=== PATIENT | male | born 1955 | race Caucasian/White ===

== ENCOUNTER 2019-11-21 08:57 | Emergency (ER) | payer BC, SELFPAY ==
[2019-11-21 08:59] VITALS: BP 138/95; PULSE 165; RESP 22; TEMP 36.8; O2SAT 95; BMI 33.9
--- NOTE | 2019-11-21 09:05 | ECG_ITS ---
APPROVED REPORT Exam: Resting ECG HR:105 bpm ECG Measurements Heart Rate 105 AXES NJ 188 P 40 QRSd 88 QRS 24 QT 338 T 32 QTc 446 <Conclusion> Sinus tachycardia RSR' or QR pattern in V1 suggests right ventricular conduction delay Borderline ECG Electronically signed by : Edward Cali, 11/21/2019 17:06:14
--- NOTE | 2019-11-21 09:05 | PC.NURSE ---
WHILE TRIAGING PT EDUCATED PT TO VAGAL DOWN D/T HR BEING IN THE 160S, WHILE ASSESSING PT HIS HR BEGAN TO SLOW DOWN AND HE CONVERTED TO SINUS TACHYCARDIA
--- NOTE | 2019-11-21 09:16 | HMH.EDGENADL ---
ED Disposition Clinical Impression: Atrial fibrillation, new onset, Hyperglycemia Disposition: Home, Self-Care Condition on Discharge: Good Additional Instructions: Take aspirin 81 mg daily. Bisoprolol daily as prescribed. See Dr. Santana in his office tomorrow at 9 AM. See your primary care doctor for follow-up of blood sugar. Blood sugar level was 199 today, not fasting. Return to the emergency department if symptoms return and do not resolve. Prescriptions: bisoproloL fumarate [Bisoprolol 10mg Tablet] 10 mg PO DAILY #30 tab Prescription Printed Referrals: Abhay Dukes [Primary Care Provider] - Dc Santana MD [Staff Physician] - - Critical Care Critical Care Time: No Attestation: On 11/21/19, the high probability of a clinically significant, sudden or life threatening deterioration of the following system(s) required my full and direct attention, intervention and personal management. The time I documented below is in addition to time spent performing reported procedures but includes the following listed in this critical care notation. Medical Decision Making - Medical Records Medical records reviewed: Yes: I reviewed the patient's medical records. - William Inquiry Pt receiving controlled substance: No Vital Signs: 11/21/19 08:59 11/21/19 09:29 11/21/19 10:00 Temperature 98.2 F Temperature Source Oral Pulse Rate Pulse Rate [Right] 165 H 101 H 101 H Respiratory Rate 22 21 20 Blood Pressure Blood Pressure [Right Arm] 138/95 H 151/97 H 135/85 Blood Pressure Mean [Right Arm] 109 115 101 02 Sat by Pulse Oximetry 95 93 L 95 11/21/19 10:23 Temperature 98.2 F Temperature Source Pulse Rate 98 H Pulse Rate [Right] Respiratory Rate 17 Blood Pressure 162/82 H Blood Pressure [Right Arm] Blood Pressure Mean [Right Arm] 02 Sat by Pulse Oximetry - Lab Data Lab results reviewed: Yes: I reviewed the patient's lab results. Lab Results 11/21/19 09:13: WBC 4.2 L, RBC 4.80, Hgb 15.5, Hct 45.2, MCV 94.3 H, MCH 32.3 H, MCHC 34.2, RDW 13.9, Plt Count 226, MPV 7.6, Neut % (Auto) 50.5, Lymph % (Auto) 39.7, Nelson % (Auto) 5.3, Eos % (Auto) 3.8, Baso % (Auto) 0.6, Neut # (Auto) 2.1, Lymph # (Auto) 1.7, Nelson # (Auto) 0.2, Eos # (Auto) 0.2, Baso # (Auto) 0.0 11/21/19 09:13: Sodium 142, Potassium 4.1, Chloride 111 H, Carbon Dioxide 21 L, Anion Gap 14.1, BUN 20, Creatinine 0.80, Estimated Creat Clear 120, Estimated GFR 97, Est GFR ( Amer) 118, Glucose 199 H, Calcium 9.5, Total Bilirubin 0.5, AST 30, ALT 35, Alkaline Phosphatase 81, Troponin I < 0.01, Total Protein 7.7, Albumin 4.4, Globulin 3.3 H, Albumin/Globulin Ratio 1.3, TSH 1.64, Thyroxine (T4) 6.6 Result diagrams: 11/21/19 09:13 11/21/19 09:13 Orders (Tests/Meds): ED MEDICATIONS Discontinued Medications Generic Name Dose Route Start Last Admin Trade Name Joshq PRN Reason Stop Dose Admin Aspirin 81 mg 11/21/19 10:01 Aspirin 81mg Chewable Tablet PO 11/21/19 10:02 ONCE ONE Bisoprolol Fumarate 10 mg 11/21/19 10:01 11/21/19 10:27 Zebeta 5mg Tablet PO 11/21/19 10:02 10 mg ONCE ONE Administration ORDERS Category Date Time Status XR chest 2V Stat Exams 11/21/19 09:22 Taken ECG Request by /Liza Stat Y 11/21/19 09:22 Ordered ECG Request by /Liza Stat Y 11/21/19 09:23 Ordered - Radiology Data #1 Image(s): Chest Image Reviewed: Yes I reviewed the patient's radiology image Preliminary Findings: Normal/NAD - ECG Data Tracing #1 EKG interpreted by Brandt Fisher MD: Rhythm: Atrial fibrillation with rapid ventricular response Rate: 163 Burns: normal Ectopy: none Conduction: normal ST Segment Changes: Nonspecific T Wave Changes: Nonspecific Q Waves: none No evidence of acute ischemia or injury Tracing #2 EKG interpreted by Brandt Fisher MD: Rhythm: sinus tachycardia Rate: 105 Burns: normal Ectopy: none Conduction: Incomplete right bundle branch
--- NOTE | 2019-11-21 09:22 | XR_ITS ---
PROCEDURE: XR CHEST 2V Referring Doctor: VimalBrandt madsen Patient Age:64Y CLINICAL HISTORY: TACHYCARDIA COMPARISON: No exams were available for comparison FINDINGS: PA and lateral chest: The heart appears slightly enlarged. Simona and mediastinal structures satisfactory. Right lung clear unremarkable. Left base: Upper normal density anteriorly subtle density just above left hemidiaphragm left lung base a may reflect anterior fat pad although if respiratory symptoms a very minor wispy infiltrate developing at lingula as questioned on the lateral view... Correlation required clinically. Pulmonary vascularity is upper normal. Chest wall T-spine unremarkable. No pleural effusion but no pneumothorax IMPRESSION: Borderline/mild cardiomegaly. No definitive pneumonia. Subtle very minimal density anterior left base suspect related to the anterior fat pad. Doubt early infiltrate lingula Dictated by: Luis Fernando Alexander MD 11/21/2019 20:12 Luis Fernando Alexander MD in [place] 11/21/2019 20:12
[2019-11-21 09:28] LABS: Basophils % 0.6 % (0.1-2.0); Eosinophils # 0.2 K/mm3 (0.0-0.4); Eosinophils % 3.8 % (0.1-12.0); Hematocrit 45.2 % (42.0-52.0); Hemoglobin 15.5 g/dL (14.1-18.0); Lymphocytes # 1.7 K/mm3 (0.7-4.5); Lymphocytes % 39.7 % (10-50); Mean Corpuscular HGB Conc 34.2 g/dL (31.8-35.4); Mean Corpuscular Hemoglobin 32.3 pg (27.0-31.2); Mean Corpuscular Volume 94.3 fl (80-94); Mean Platelet Volume 7.6 fl (7.4-10.4); Monocytes # 0.2 K/mm3 (0.1-1.0); Monocytes % 5.3 % (1.7-9.3); Neutrophils # 2.1 K/mm3 (1.8-7.8); Neutrophils % 50.5 % (37.0-80.0); Platelet Count 226 K/mm3 (142-424); Red Cell Distribution Width 13.9 % (11.5-17.5); White Blood Count 4.2 K/mm3 (4.8-10.8)
[2019-11-21 09:29] VITALS: BP 151/97; PULSE 101; RESP 21; O2SAT 93
[2019-11-21 09:29] LABS: Chloride 111 mmol/L (98-107); Potassium 4.1 mmoL/L (3.5-5.1); Sodium 142 mmol/L (136-145)
[2019-11-21 09:31] LABS: Blood Urea Nitrogen 20 mg/dl (9-20); Creatinine Clearance Estimated 120 mL/min (50-200); Estimated Glomerular Filt Rate 97 ml/min (>60); GFR (African American) 118 ML/MIN (>60)
[2019-11-21 09:32] LABS: Alanine Aminotransferase 35 U/L (12-78); Albumin Level 4.4 g/dl (3.5-5.0); Albumin/Globulin Ratio 1.3 (1.1-1.8); Alkaline Phosphatase 81 U/L (38-126); Anion Gap 14.1 mEq/L (5-15); Aspartate Amino Transferase 30 U/L (17-59); Bilirubin,Total 0.5 mg/dl (0.2-1.3); Calcium 9.5 mg/dl (8.4-10.2); Carbon Dioxide 21 mmol/L (22.0-30.0); Globulin 3.3 g/dL (1.3-3.2); Glucose 199 mg/dl (74-100); Total Protein,Serum 7.7 g/dl (6.3-8.2)
[2019-11-21 09:47] LABS: Troponin I < 0.01 ng/ml (0.00-0.034)
[2019-11-21 09:50] LABS: T4 (Thyroxine) 6.6 ug/dl (5.53-11.0)
--- NOTE | 2019-11-21 09:56 | PC.NURSE ---
Dr. Santana paged
--- NOTE | 2019-11-21 09:57 | PC.NURSE ---
SPEAKING TO DR KING
--- NOTE | 2019-11-21 09:57 | PC.NURSE ---
speaking with Dr. Santana
[2019-11-21 10:00] VITALS: BP 135/85; PULSE 101; RESP 20; O2SAT 95
[2019-11-21 10:03] LABS: Thyroid Stimulating Hormone 1.64 uIU/mL (0.465-4.68)
[2019-11-21 10:23] VITALS: BP 162/82; PULSE 98; RESP 17; TEMP 36.8; O2SAT 100
== END 2019-11-21 10:32 | disposition home or self-care (01) ==
PROVIDERS: Emergency Provider Emergency Medicine; PCP Family Medicine
DX: I48.0 Paroxysmal atrial fibrillation (principal); I10 Essential (primary) hypertension; E78.5 Hyperlipidemia, unspecified; Z79.899 Other long term (current) drug therapy; R73.9 Hyperglycemia, unspecified
CPT/HCPCS: 71046; 80053; 84436; 84443; 84484; 85025; 93005; 99284

== ENCOUNTER → 2019-12-07 06:36 | Outpatient (CLI) | payer BC, SELFPAY ==
--- NOTE | 2019-12-07 06:37 | CA_ITS ---
APPROVED REPORT Exam: Pharmacologic Technologist: Kisha Ventura, Ht: 6 ft 0 in Wt: 260 lbs BSA: 2.38 m2 HR: 45 bpm BP: 161/77 mmHg Indications: Chest pain, Sob, Afib Medical History Medications: Lisinopril,,,,, Rovastatin,,,,, BisOPROL,,,,, Asprin,,,,, Stress Test Details Test: LEXISCAN HR Resting HR: 54 bpm Max Heart Rate (APMHR): 156 bpm Max HR Achieved: 77 bpm Target HR (85% APMHR): 132 bpm % of APMHR: 49 Recovery HR: 65 bpm BP Resting BP: 173/80 mmHg Max BP: 173/80 mmHg Recovery BP: 158.0/81.0 mmHg ECG Clinical Exercise duration: 04:00 min Highest Stage Achieved: Exercise capacity: 1.0 METs Stress ECG Conclusion Resting EKG: Marked Sinus Clive, otherwise normal Switched from exercise due to blunted HR response on Beta Elly. Symptoms: SOA, maiaise, ASHTON, mild stomach discomfort Arrhythmias/Ectopy: None ST-T Changes: NST wave changes Conclusion: Unremarkable Lexiscan stress, Myoview images reported separately Test Summary RECOVERY 03:42 . . 65 . 158/ 81 . . REST 03:25 . . 54 . 173/ 80 . . Stage 1 . . . . . . . Myoview Injected Stage 1 01:00 . . 77 . . . . Stage 2 01:00 . . 68 . . . . Stage 3 01:00 . . 67 . 159/ 69 . . Stage 4 01:00 . . 65 . 143/ 72 . Stop exercise at 04:00 RECOVERY 01:00 . . 68 . 141/ 82 . . RECOVERY 02:00 . . 64 . 157/ 79 . . RECOVERY 03:00 . . 65 . 157/ 79 . . RECOVERY 03:42 . . 65 . 158/ 81 . . Electronically signed by : Adria Staton, 12/07/2019 18:43:13
--- NOTE | 2019-12-07 06:37 | CA_ITS ---
APPROVED REPORT EXAM: Comprehensive 2D, Doppler, and color-flow Echocardiogram Drapery Rod Assembler: Yara Anderson RDCS Ht: 6 ft 0 in Wt: 277lbs BSA: 2.45 BP: 122/70 mmHg Indications: CP, SOB, AF, HTN, HLD 2D Dimensions LVOT 2.49 cm (M/F) 1.5-2.5 M-Mode Dimensions RVDd 3.30 cm (0.9-2.6) LVDd 6.56 cm (3.5-5.7) LVDs 4.17 cm (3.5-5.7) IVSd 0.87 cm (0.6-1.1) PWd 0.87 cm (0.6-1.1) EF (Teich) 64.90% FS 36.40% EDV (Teich) 220.50 mL ESV (Teich) 77.30 mL LV Diastology E/A Ratio 1.02 Mitral Valve MV A Velocity 76.00 (40-130 cm/s) Left Ventricle Left atrium is mildly enlarged, left ventricle is normal size, mild concentric left ventricular hypertrophy, visually estimated ejection fraction 55% with no regional wall motion abnormality, grade 1 diastolic dysfunction seen without tissue Doppler evidence of raise left atrial pressure. Right Ventricle Right atrium and right ventricle are mildly enlarged with normal contractility. Aortic Valve Aortic valve is minimally thickened and fibrosed, there is no aortic stenosis or aortic insufficiency. Mitral Valve Mitral valve is grossly normal, there is mild mitral regurgitation. Tricuspid Valve Tricuspid valve is grossly normal, there is mild tricuspid regurgitation, tricuspid regurgitation jet velocity is inadequate for calculation of the right ventricular systolic pressure. Pulmonic Valve Pulmonic valve is poorly visualized. Great Vessels Aortic root is normal size. Pericardium No significant pericardial effusion noted. Conclusion 1. Mildly enlarged left atrium, normal left ventricular size, mild concentric left ventricular hypertrophy, visually estimated ejection fraction 55% with no regional wall motion abnormality, grade 1 diastolic dysfunction seen without tissue Doppler evidence of raise left atrial pressure. 2. Mildly enlarged right ventricle with normal contractility. 3. Mild mitral and tricuspid regurgitation. 4. No significant pericardial effusion noted. Electronically signed by : Adria Staton, 12/07/2019 18:22:06
--- NOTE | 2019-12-07 06:37 | NM_ITS ---
APPROVED REPORT Exam: Nuclear Stress Test Indication: SOB, Palpitations, HTN, High cholesterol, Family history Patient Location: Outpatient Stress Tech: Yuliet Rosales PA Tech:Deirdre Shook, ARRT, RT (R)(N) Ht: 6 ft 0 in Wt: 260 lbs HR: 45 bpm BP: 161/77 mmHg BSA: 2.38 m2 History: SOB, Palpitations, HTN, High cholesterol, Family history Procedure: Patient received a 0.4 mg of intravenous Lexiscan, resting heart rate 45 bpm, resting blood pressure 161/77 mmHg, with Lexiscan maximum heart rate achived was 68 bpm which is Less than 85 % of the maximum predicted heart rate and blood pressure was 159/60 mmHg. With Lexiscan, patient denied any complaint of chest pain. Electrocardiogram Resting electrocardiogram shows sinus rhythm, with Lexiscan there is less than 1.[address] segment depression noted from the baseline EKG. The EKG portion of the Lexiscan Myoview is nondiagnostic. Cardiac Stress and Resting SPECT Images: Cardiac Stress and Resting SPECT images were obtained using technetium 99m Myoview 31.5 mCi stress and 10.81 mCi at rest. Gated SPECT for analysis of segmental wall motion and calculation of the ejection fraction also done. Cardiac stress and resting SPECT images show decreased tracer activity in the posterolateral wall which partially improves on the resting images suggestive of mixed ischemia and scar, computer derived ejection fraction is 58% with mild posterolateral wall hypokinesis, right ventricle is normal size and contractility. Conclusion: 1. The EKG portion of the Lexiscan Myoview is nondiagnostic. 2. Scintigraphic evidence of mixed ischemia and scar involving the posterolateral wall, computer derived ejection fraction 58% with segmental wall motion abnormality described above, right ventricle is normal size and contractility. 3. Abnormal Lexiscan Myoview study. Electronically signed by : Adria Staton, 12/07/2019 18:46:42
--- NOTE | 2019-12-07 09:02 | HMH.ITSHM ---
Current Home Medications as stated by this patient Blaine Barth or apprenticeship representative. []LISINOPRIL ROSUVASTATIN BISOPROLOL
== END ==
PROVIDERS: PCP Family Medicine; Visit Provider Urology
DX: R06.00 Dyspnea, unspecified (principal); I48.91 Unspecified atrial fibrillation; R00.1 Bradycardia, unspecified; Z82.49 Family history of ischemic heart disease and other diseases of the circulatory system
CPT/HCPCS: 78452; 93017; 93306; A9502; J2785

== ENCOUNTER 2019-12-24 09:36 | Day surgery (SDC) | payer BC, SELFPAY ==
[2019-12-24] VITALS (11 sets, daily range): BP systolic 130–156; BP diastolic 55–89; PULSE 38–54; RESP 16; TEMP 36.4; O2SAT 94–98; BMI 37.4
--- NOTE | 2019-12-24 10:00 | IR_ITS ---
APPROVED REPORT Patient Location: Outpatient Retail Special Event Associate: RUPALI Sanderson RT (R) PROCEDURES Left heart catheterization Left ventriculogram Selective coronary angiogram Drug-eluting stent deployment to the mid dominant circumflex artery Drug-eluting stent deployment to the proximal LAD INDICATION Coronary artery disease, High risk abnormal Myoview in the posterior lateral wall accompanied by regional wall motion abnormality, Angina pectoris Informed consent was obtained prior to the procedure. COMPLICATIONS None Estimated Blood Loss: less than 10 ml TECHNIQUE One percent lidocaine used to anesthetize the right anterior aspect of the wrist. The right radial artery was accessed via the Seldinger technique. A 6 Yoruba sheath was placed in the right radial artery. 2.5 mg of verapamil, 800 mcg of nitroglycerin, 1mg Lidocaine and 5000 U Heparin were given through the arterial sheath. A Karthik catheter was used to perform left heart catheterization, left ventriculogram and selective coronary angiogram. At the end the diagnostic angiogram therapeutic heparin was administered giving a therapeutic ACT. A Choice PT extra-support wire was placed into the circumflex artery where a 3.5 x 12 mm resolute candice stent was deployed at 16 stephen reducing the hemodynamically severe stenosis to 0%. MICHAEL-3 flow was present before and after the procedure. After achieving excellent angiographic results this wire was placed into the LAD where a 3 mm x 18 mm resolute candice stent was deployed at 18 stephen reducing the severe stenosis to 0%. MICHAEL-3 flow was present before and after the procedure down both blood vessels. At the end of the procedure the apparatus was removed the sheath was removed good hemostasis was achieved using TR banding patient was transferred to the postop putting her in stable condition ANGIOGRAPHIC RESULTS The left main artery Normal The left anterior descending artery Has a proximal concentric 70% stenosis. The circumflex artery Is a large dominant vessel and gives rise to a ramus intermedius which is normal. The proximal circumflex artery has 10 to 20% stenoses while the mid segment has a concentric 50% stenosis The right coronary artery Nondominant very small with a proximal 90% stenosis The YBARRA ventriculogram reveals Preserved at 55% The left ventricular end-diastolic pressure 15 mmHg IMPRESSION Hemodynamically severe disease in the mid dominant circumflex artery accompanied by 50% stenosis with successful stenting reducing this lesion to 0% Angiographically severe stenosis in the proximal LAD reducing the stenosis to 0% with one drug-eluting stent Preserved ejection fraction Mildly elevated LVEDP Severely diseased vestigial right coronary artery too small for intervention and not clinically appropriate for intervention PLAN 1. Dual antiplatelet therapy with Brilinta and aspirin 2. LDL less than 55 3. Cardiac rehabilitation 4. Avoidance of tobacco products 5. Aggressive risk factor modification Electronically signed by : Dc Santana, 12/24/2019 11:42:25
[2019-12-24 10:29] LABS: Basophils % 0.8 % (0.1-2.0); Eosinophils # 0.2 K/mm3 (0.0-0.4); Eosinophils % 4.2 % (0.1-12.0); Hematocrit 42.1 % (42.0-52.0); Hemoglobin 14.8 g/dL (14.1-18.0); Lymphocytes # 1.8 K/mm3 (0.7-4.5); Mean Corpuscular HGB Conc 35.1 g/dL (31.8-35.4); Mean Corpuscular Hemoglobin 32.6 pg (27.0-31.2); Mean Corpuscular Volume 92.7 fl (80-94); Monocytes # 0.3 K/mm3 (0.1-1.0); Monocytes % 6.1 % (1.7-9.3); Neutrophils # 2.4 K/mm3 (1.8-7.8); Neutrophils % 50.9 % (37.0-80.0); Platelet Count 222 K/mm3 (142-424); Red Blood Count 4.54 M/mm3 (4.60-6.20); Red Cell Distribution Width 13.5 % (11.5-17.5); White Blood Count 4.6 K/mm3 (4.8-10.8)
[2019-12-24 10:30] LABS: Chloride 108 mmol/L (98-107); Potassium 4.5 mmoL/L (3.5-5.1); Sodium 142 mmol/L (136-145)
[2019-12-24 10:33] LABS: Anion Gap 16.5 mEq/L (5-15); Blood Urea Nitrogen 17 mg/dl (9-20); Calcium 9.2 mg/dl (8.4-10.2); Carbon Dioxide 22 mmol/L (22.0-30.0); Creatinine Clearance Estimated 132 mL/min (50-200); Estimated Glomerular Filt Rate 75 ml/min (>60); GFR (African American) 91 ML/MIN (>60); Glucose 113 mg/dl (74-100)
[2019-12-24 10:54] LABS: Coronavirus 19 IgG Antibody Negative (Negative); Coronavirus 19 IgM Antibody Negative (Negative)
--- NOTE | 2019-12-24 14:19 | HMH.PHACLD ---
Blaine Barth has received discharge medication counseling on the following medications: PATIENT IS CURRENTLY TAKING ASPIRIN 325 MG DAILY, BISOPROLOL 5 MG DAILY, LISINOPRIL 10 MG DAILY, AND ROSUVASTATIN 10 MG DAILY. MD ADDING BRILINTA 90 MG BID. ASPIRIN IS BEING CHANGED TO 81 MG DAILY.
== END 2019-12-24 14:58 | disposition home or self-care (01) ==
LOC: CATHLAB 09:39
PROVIDERS: PCP Family Medicine; Visit Provider Internal Medicine
DX: I48.0 Paroxysmal atrial fibrillation (principal); E78.5 Hyperlipidemia, unspecified; I10 Essential (primary) hypertension; R00.1 Bradycardia, unspecified; Z82.49 Family history of ischemic heart disease and other diseases of the circulatory system; I25.118 Atherosclerotic heart disease of native coronary artery with other forms of angina pectoris
CPT/HCPCS: 80048; 85025; 86328; 92928; 93458; 99152; 99153; C1725; C1760; C1769; C1876; C9600; J1644; Q9967

== ENCOUNTER 2020-02-19 17:03 | Emergency (ER) | payer BC, SELFPAY ==
[2020-02-19 17:19] VITALS: BP 170/97; PULSE 68; RESP 17; TEMP 36.9; O2SAT 95; BMI 37.3
--- NOTE | 2020-02-19 17:21 | CT_ITS ---
Procedure: CT ABDOMEN PELVIS WO CON Referring Doctor: Chang Guthrie Patient Age:65Y CLINICAL INDICATION: flank pain, r/o kidney stone COMPARISON: No exams were available for comparison TECHNIQUE: Axial images obtained with sagittal and coronal reformats. All CT scans at the facility use one or more dose reduction, viz: automated exposure control, ma/kV adjustment per patient size (including targeted exams where dose is matched to indication, i.e. head), or iterative reconstruction technique. FINDINGS: Lower thorax: Subtle ground-glass opacities at the periphery of the lung deras bilaterally most likely reflecting some minor chronic changes and mild atelectasis. Doubt active disease but if respiratory symptoms this may require further investigation but this features most evident the posterior right lung base no pleural effusion but Heart. Mild cardiomegaly ABDOMEN: Liver: No masses or biliary dilatation. Gallbladder: Nondistended. No radio opaque stones. Common duct normal 2 the Pancreas: Unremarkable no masses or peripancreatic fluid collections. Spleen: unremarkable Adrenals: unremarkable === tract === Kidneys/ureters: Mild bilateral hydroureter ureteral nephrosis but. Left kidney: 5 mmx 2 mm non-obstructing calculus within the lower pole calyx left kidney. Mild motion artifact slightly distorts this finding Right kidney. Mild cortical thinning at lower pole may reflect old insult or infection PELVIS: Urinary bladder: Moderately distended. No stones or masses. Of normal wall thickness. Small prostate. . Prostate not enlarged measuring 3.2 cm transverse. There is some nonspecific mild asymmetry of the seminal vesicles with the right larger than left === GI tract ==== Large bowel. Moderate stool is seen throughout the right and transverse colon but minimal solid stool at left colon through the rectosigmoid. . Appendix not discretely visualized but no evidence of appendicitis. Terminal ileum. Contains some minimal stool-like material which may reflect reflux from ileocecal valve or mild a decreased peristalsis as could be seen with a mild ileus but remainder of the small bowel appears normal and unremarkable with no dilatation or other findings to raise concerns. Stomach bowel: Nondistended. No obvious mass or thickening. Peritoneum: No abnormal fluid collections. No obvious inflammatory changes. No free air. Lymph nodes: No enlarged lymph nodes apparent. Vasculature: Diffuse atherosclerotic calcification of abdominal aorta. No aneurysmal dilatation. No retroperitoneal hemorrhage evident. Bones: No acute fracture 7 mm lucent area with fairly dense surrounding sclerosis anterior aspect subcapital region right femoral neck but this most likely reflects a benign herniation pit or similar benign feature. There is a similar less pronounced smaller feature on the contralateral left femoral neck IMPRESSION: 1..Mild bilateral hydronephrosis with slight diffuse dilatation of both ureters down to the bladder... Trigone region and bladder unremarkable and no bladder calculi are evident. Urinary bladder only mildly distended. Prostate not enlarged findings warrant correlation with urinalysis 2. Incidental non-obstructing calculus at lower pole calyx left kidney 5 x 2 mm No ureteral calculi. No calculi right kidney 3.. Appendix not discretely visualized but I see no good evidence of appendicitis However if there should be progressive RLQ pain, follow-up with oral and IV contrast may be of benefit. 4. Very subtle ground-glass opacities in the periphery of the lung bases most likely reflecting mild chronic changes and atelectasis. Dicta
[2020-02-19 17:30] LABS: Chloride 105 mmol/L (98-107)
[2020-02-19 17:32] LABS: Alanine Aminotransferase 29 U/L (12-78); Albumin Level 4.7 g/dl (3.5-5.0); Albumin/Globulin Ratio 1.3 (1.1-1.8); Alkaline Phosphatase 71 U/L (38-126); Amylase 61 U/L (30-110); Anion Gap 10.7 mEq/L (5-15); Aspartate Amino Transferase 28 U/L (17-59); Basophils % 0.4 % (0.1-2.0); Bilirubin,Total 0.5 mg/dl (0.2-1.3); Blood Urea Nitrogen 24 mg/dl (9-20); Calcium 9.5 mg/dl (8.4-10.2); Carbon Dioxide 27 mmol/L (22.0-30.0); Creatinine Clearance Estimated 118 mL/min (50-200); Eosinophils % 0.7 % (0.1-12.0); Estimated Glomerular Filt Rate 67 ml/min (>60); GFR (African American) 81 ML/MIN (>60); Globulin 3.6 g/dL (1.3-3.2); Glucose 111 mg/dl (74-100); Hematocrit 47.1 % (42.0-52.0); Hemoglobin 15.9 g/dL (14.1-18.0); Lipase 70 U/L (23-300); Lymphocytes # 1.8 K/mm3 (0.7-4.5); Lymphocytes % 28.5 % (10-50); Mean Corpuscular HGB Conc 33.8 g/dL (31.8-35.4); Mean Corpuscular Hemoglobin 32.1 pg (27.0-31.2); Mean Platelet Volume 7.8 fl (7.4-10.4); Monocytes # 0.2 K/mm3 (0.1-1.0); Monocytes % 3.3 % (1.7-9.3); Neutrophils # 4.1 K/mm3 (1.8-7.8); Platelet Count 254 K/mm3 (142-424); Potassium 4.7 mmoL/L (3.5-5.1); Red Blood Count 4.96 M/mm3 (4.60-6.20); Red Cell Distribution Width 14.1 % (11.5-17.5); Sodium 138 mmol/L (136-145); Total Protein,Serum 8.3 g/dl (6.3-8.2); White Blood Count 6.1 K/mm3 (4.8-10.8)
--- NOTE | 2020-02-19 17:52 | HMH.EDABDPAI ---
ED Disposition Clinical Impression: Obstructive uropathy, UTI (urinary tract infection) with pyuria Disposition: Home, Self-Care Condition on Discharge: Good Instructions: DI for Acute Abdomen Prescriptions: Ciprofloxacin HCl [Ciprofloxacin 500mg Tab] 500 mg PO BID 7 Days #14 tab Transmission Status: Pending to [facility]/pharmacy #[id number] Referrals: PCP,No [Primary Care Provider] - - Critical Care Critical Care Time: No Attestation: On 02/19/20, the high probability of a clinically significant, sudden or life threatening deterioration of the following system(s) required my full and direct attention, intervention and personal management. The time I documented below is in addition to time spent performing reported procedures but includes the following listed in this critical care notation. Medical Decision Making - William Inquiry Pt receiving controlled substance: No Vital Signs: 02/19/20 17:19 Temperature 98.5 F Temperature Source Oral Pulse Rate [Right Radial] 68 Respiratory Rate 17 Blood Pressure [Right Arm] 170/97 H Blood Pressure Mean [Right Arm] 121 02 Sat by Pulse Oximetry 95 Oxygen Delivery Method Room Air - Lab Data Lab results reviewed: Yes: I reviewed the patient's lab results. Lab Results 02/19/20 17:20: WBC 6.1, RBC 4.96, Hgb 15.9, Hct 47.1, MCV 95.0 H, MCH 32.1 H, MCHC 33.8, RDW 14.1, Plt Count 254, MPV 7.8, Neut % (Auto) 67.0, Lymph % (Auto) 28.5, Tama % (Auto) 3.3, Eos % (Auto) 0.7, Baso % (Auto) 0.4, Neut # (Auto) 4.1, Lymph # (Auto) 1.8, Tama # (Auto) 0.2, Eos # (Auto) 0.0, Baso # (Auto) 0.0 02/19/20 17:20: Sodium 138, Potassium 4.7, Chloride 105, Carbon Dioxide 27, Anion Gap 10.7, BUN 24 H, Creatinine 1.10, Estimated Creat Clear 118, Estimated GFR 67, Est GFR ( Amer) 81, Glucose 111 H, Calcium 9.5, Total Bilirubin 0.5, AST 28, ALT 29, Alkaline Phosphatase 71, Total Protein 8.3 H, Albumin 4.7, Globulin 3.6 H, Albumin/Globulin Ratio 1.3, Amylase 61, Lipase 70 02/19/20 17:50: Urine Color Yellow, Urine Appearance Clear, Urine pH 7.0, Ur Specific Pooler 1.020, Urine Protein 3+, Urine Glucose (UA) 1+, Urine Ketones 1+, Urine Blood 3+, Urine Nitrate Positive, Urine Bilirubin Negative, Urine Urobilinogen 4.0, Ur Leukocyte Esterase 2+ A, Urine RBC Tntc, Urine WBC 10-20, Ur Squamous Epith Cells 5-10, Amorphous Sediment 2+, Urine Bacteria 2+ Result diagrams: 02/19/20 17:20 02/19/20 17:20 Orders (Tests/Meds): ED MEDICATIONS Generic Name Dose Route Start Last Admin Trade Name Freq PRN Reason Stop Dose Admin Sodium Chloride 1,000 mls @ 999 mls/hr 02/19/20 17:30 02/19/20 17:31 Sod Chlor 0.9% 1000ml Bag IV 02/19/20 18:30 999 mls/hr .Q1H1M KAREN Administration Discontinued Medications Generic Name Dose Route Start Last Admin Trade Name Freq PRN Reason Stop Dose Admin Ketorolac Tromethamine 30 mg 02/19/20 17:21 02/19/20 17:25 Ketorolac 30mg/Ml Vial IV 02/19/20 17:22 30 mg ONCE ONE Administration Ondansetron HCl 4 mg 02/19/20 17:21 02/19/20 17:25 Ondansetron 4mg/2ml Vial IV 02/19/20 17:22 4 mg ONCE ONE Administration ORDERS Category Date Time Status CT abdomen pelvis wo con Stat Cat Scan 02/19/20 17:21 Taken Urine Culture Stat Micro 02/19/20 17:50 Received - CT Data CT Scan: Abdomen, Pelvis Time Received: 18:[address] Reviewed: Yes: I have reviewed the patient's CT results, I have viewed the radiologist's interpretation Findings Narrative: bladder distension w/ bilat. hydronephrosis; no other acute process seen Abdominal Pain HPI - General Chief Complaint: Abdominal Pain Stated Complaint: possible kidney stones Time Seen by Provider: 02/19/20 17:50 Mode of Arrival: Ambulatory Source of Information: Patient Limitations: No Limitations Description of Symptoms (Recalled from ER Triage Doc. by RN): pt c/o bilateral flank pain and inability to void. pt states he has hx of kidney stones and feels like he has one. - History of Present Illn
[2020-02-19 18:15] LABS: Microscopic, Urine URINE MICROSCOPIC (MICROSCOPIC)
[2020-02-19 18:16] LABS: Appearance,Urine CLEAR (Clear); Blood, Urine 3+ (Negative); Color,Urine YELLOW (Yellow); Glucose,Urine (UA) 1+ (Negative); Ketones,Urine 1+ (Negative); Leukocyte Esterase,Urine 2+ (Negative); Nitrate,Urine POSITIVE (Negative); Protein,Urine 3+ (Negative)
[2020-02-19 18:18] LABS: Bilirubin,Urine Negative (Negative)
[2020-02-19 18:26] LABS: Amorphous Sediment,Urine 2+ /lpf; Bacteria,Urine 2+ /lpf; RBC,Urine TNTC #/hpf (0-3)
--- NOTE | 2020-02-19 18:49 | PC.NURSE ---
leg bag provided and extensive education provided to patient and on care of the baker cath. both verbalize understanding and deny questions or concerns.
[2020-02-19 19:14] VITALS: BP 185/99; PULSE 75; RESP 18; TEMP 36.9; O2SAT 98
== END 2020-02-19 19:26 | disposition home or self-care (01) ==
PROVIDERS: Emergency Provider Emergency Medicine
DX: N13.9 Obstructive and reflux uropathy, unspecified (principal); N30.00 Acute cystitis without hematuria; I10 Essential (primary) hypertension; I48.0 Paroxysmal atrial fibrillation; E78.5 Hyperlipidemia, unspecified; F17.210 Nicotine dependence, cigarettes, uncomplicated; I25.10 Atherosclerotic heart disease of native coronary artery without angina pectoris; Z87.442 Personal history of urinary calculi; Z79.899 Other long term (current) drug therapy
CPT/HCPCS: 74176; 80053; 81001; 82150; 83690; 85025; 87086; 96365; 96367; 96375; 99283; J2405

== ENCOUNTER 2020-02-20 10:23 | Observation (INO) | payer BC, SELFPAY ==
[2020-02-20 10:41] VITALS: BP 125/66; PULSE 59; RESP 17; TEMP 36.8; O2SAT 95; BMI 37.3
--- NOTE | 2020-02-20 10:49 | HMH.EDGENADL ---
ED Disposition Clinical Impression: Acute urinary retention, Cystitis, Gross hematuria Obstructed Olsen catheter Qualifiers: Encounter type: initial encounter Qualified Code(s): T83.091A - Other mechanical complication of indwelling urethral catheter, initial encounter Disposition: Admitted as Observation Condition on Discharge: Good - Critical Care Critical Care Time: No Attestation: On 02/20/20, the high probability of a clinically significant, sudden or life threatening deterioration of the following system(s) required my full and direct attention, intervention and personal management. The time I documented below is in addition to time spent performing reported procedures but includes the following listed in this critical care notation. Medical Decision Making - Medical Records Medical records reviewed: Yes: I reviewed the patient's medical records. MR Comment: Reviewed emergency department visits for urinary retention and catheter obstruction. Reviewed CT scan and urine results, lab results. - William Inquiry Pt receiving controlled substance: No Vital Signs: 02/20/20 10:41 02/20/20 14:41 Temperature 98.3 F 98.3 F Temperature Source Oral Pulse Rate 56 L Pulse Rate [Right Radial] 59 L Respiratory Rate 17 17 Blood Pressure 146/71 H Blood Pressure [Right Arm] 125/66 Blood Pressure Mean [Right Arm] 85 02 Sat by Pulse Oximetry 95 Oxygen Delivery Method Room Air Room Air - Lab Data Lab results reviewed: Yes: I reviewed the patient's lab results. Lab Results 02/20/20 11:05: Sodium 140, Potassium 4.4, Chloride 110 H, Carbon Dioxide 26, Anion Gap 8.4, BUN 26 H, Creatinine 0.90, Estimated Creat Clear 130, Estimated GFR 85, Est GFR ( Amer) 102 D, Glucose 141 H D, Calcium 8.7 02/20/20 11:05: WBC 3.9 L D, RBC 4.51 L, Hgb 14.1 D, Hct 41.9 L, MCV 92.9, MCH 31.3 H, MCHC 33.7, RDW 14.2, Plt Count 212, MPV 7.7, Neut % (Auto) 53.5, Lymph % (Auto) 34.0, [place] % (Auto) 7.1, Eos % (Auto) 4.6, Baso % (Auto) 0.7, Neut # (Auto) 2.1, Lymph # (Auto) 1.3, [place] # (Auto) 0.3, Eos # (Auto) 0.2, Baso # (Auto) 0.0 02/20/20 11:05: SARS-CoV-2 IgG Ab (Rapid) Negative, SARS-CoV-2 IgM Ab (Rapid) Negative Result diagrams: 02/20/20 11:05 02/20/20 11:05 Orders (Tests/Meds): ED MEDICATIONS Generic Name Dose Route Start Last Admin Trade Name Freq PRN Reason Stop Dose Admin Acetaminophen 650 mg 02/20/20 14:22 02/20/20 18:10 Acetaminophen 325mg Tab PO 03/21/20 14:21 650 mg Q4HP PRN Administration As Needed for Fever or Pain Aspirin 81 mg 02/21/20 09:00 Aspirin Ec 81mg Tablet PO 03/22/20 08:59 DAILY KAREN Carvedilol 12.5 mg 02/20/20 21:00 Carvedilol 12.5mg Tablet PO 03/21/20 20:59 BID KAREN Clopidogrel Bisulfate 75 mg 02/21/20 09:00 Clopidogrel 75mg Tab PO 03/22/20 08:59 DAILY KAREN Sodium Chloride 1,000 mls @ 50 mls/hr 02/20/20 14:22 02/20/20 15:07 Sod Chlor 0.9% 1000ml Bag IV 03/21/20 14:21 50 mls/hr .Q20H KAREN Administration Levofloxacin/Dextrose 750 mg in 150 mls @ 100 mls/hr 02/20/20 15:00 02/20/20 15:09 Levofloxacin 750mg/150ml Premix IV 03/05/20 14:59 100 mls/hr Q24H KAREN Administration Irbesartan 37.5 mg 02/21/20 09:00 Irbesartan 75mg Tablet PO 03/22/20 08:59 DAILY KAREN Ondansetron HCl 4 mg 02/20/20 14:22 Ondansetron 4mg/2ml Vial IV 03/21/20 14:21 Q8HP PRN Nausea Pantoprazole Sodium 40 mg 02/21/20 09:00 Pantoprazole 40mg Tablet PO 03/22/20 08:59 DAILY KAREN Pravastatin Sodium 40 mg 02/20/20 21:00 Pravastatin 40mg Tab PO 03/21/20 20:59 HS KAREN Sodium Chloride 10 ml 02/20/20 14:22 Sodium Chloride 0.9% 10ml Flush Syringe IV 03/21/20 14:21 NEEDED PRN Maintain IV Site ORDERS Category Date Time Status Consult to Urology [CONS] Routine Cons 02/20/20 14:22 Active - Physician Consults Physician Consulted: Dr. Cali Time: 13:39 Reason -: Admission Comment/Response:
[2020-02-20 11:21] LABS: Basophils % 0.7 % (0.1-2.0); Chloride 110 mmol/L (98-107); Eosinophils # 0.2 K/mm3 (0.0-0.4); Eosinophils % 4.6 % (0.1-12.0); Hematocrit 41.9 % (42.0-52.0); Lymphocytes # 1.3 K/mm3 (0.7-4.5); Mean Corpuscular HGB Conc 33.7 g/dL (31.8-35.4); Mean Corpuscular Hemoglobin 31.3 pg (27.0-31.2); Mean Corpuscular Volume 92.9 fl (80-94); Mean Platelet Volume 7.7 fl (7.4-10.4); Monocytes # 0.3 K/mm3 (0.1-1.0); Monocytes % 7.1 % (1.7-9.3); Neutrophils # 2.1 K/mm3 (1.8-7.8); Neutrophils % 53.5 % (37.0-80.0); Platelet Count 212 K/mm3 (142-424); Red Blood Count 4.51 M/mm3 (4.60-6.20); Red Cell Distribution Width 14.2 % (11.5-17.5); Sodium 140 mmol/L (136-145); White Blood Count 3.9 K/mm3 (4.8-10.8)
[2020-02-20 11:22] LABS: Hemoglobin 14.1 g/dL (14.1-18.0); Potassium 4.4 mmoL/L (3.5-5.1)
[2020-02-20 11:25] LABS: Anion Gap 8.4 mEq/L (5-15); Blood Urea Nitrogen 26 mg/dl (9-20); Calcium 8.7 mg/dl (8.4-10.2); Carbon Dioxide 26 mmol/L (22.0-30.0); Creatinine Clearance Estimated 130 mL/min (50-200); Estimated Glomerular Filt Rate 85 ml/min (>60); GFR (African American) 102 ML/MIN (>60); Glucose 141 mg/dl (74-100)
--- NOTE | 2020-02-20 12:05 | PC.NURSE ---
baker cath removed and large blood clot lodged in the end of the catheter. [address] catheter placed via sterile technique and to bsd bag system. pt continuous bladder irrigation started. pt tolerated well with minimal discomfort.
--- NOTE | 2020-02-20 13:20 | PC.NURSE ---
3000 blood tinged urine emptied from baker cath bag. 2nd bag of bladder irrigation initiated. pt tolerating well.
--- NOTE | 2020-02-20 13:37 | PC.NURSE ---
Dr Fisher speaking with Dr Cali
[2020-02-20 14:15] LABS: Coronavirus 19 IgG Antibody Negative (Negative); Coronavirus 19 IgM Antibody Negative (Negative)
--- NOTE | 2020-02-20 14:24 | HMH.PHAVTE ---
[facility] Pharmacy VTE Monitoring - Patient Demographics Admission date: 02/20/20 Report Date: 02/20/20 Time: 14:24 Allergies/Adverse Reactions: Patient Allergies No Known Allergies Allergy (Verified 02/20/20 10:46) Height: 1.83 m Weight: 124.738 kg Patient Problems: Current Active Problems Acute urinary retention (Acute) Cystitis (Acute) Gross hematuria (Acute) Obstructed Olsen catheter (Acute) - VTE Risk Labs: VTE Related Lab Results Hgb 14.1 g/dL (14.1-18.0) D 02/20/20 11:05 Hct 41.9 % (42.0-52.0) L 02/20/20 11:05 Plt Count 212 K/mm3 (142-424) 02/20/20 11:05 BUN 26 mg/dl (9-20) H 02/20/20 11:05 Creatinine 0.90 mg/dl (0.66-1.25) 02/20/20 11:05 Estimated Creat Clear 130 mL/min (50-200) 02/20/20 11:05 - Prophylaxis VTE Prophylaxis Ordered?: Yes Types of VTE Prophylaxis: TEDS Knee High Location of Applied Device: Bilateral Lower Extremeties
--- NOTE | 2020-02-20 14:40 | PC.NURSE ---
2 bag of bladder irrigation complete. 2000 mL of urine emptied from bsd bag system. report to armida, kate rn on 2nd floor and patient transported to floor by wheelchair at this time.
--- NOTE | 2020-02-20 14:40 | HMH.PHAINT ---
MEDICATION RECONCILIATION COMPLETED ON PATIENT USING EXTERNAL FILL HISTORY FROM PHARMACY. -SEBASTIÁN DORANTES, ABRILD
[2020-02-20 14:41] VITALS: BP 146/71; PULSE 56; RESP 17; TEMP 36.8; O2SAT 95
[2020-02-20 15:06] VITALS: BP 167/74; PULSE 52; RESP 17; TEMP 36.7; O2SAT 99; BMI 37.8
--- NOTE | 2020-02-20 16:59 | HMH.HP ---
*Admission Date: 02/20/20 *Chief complaint: Urinary obstruction, hematuria *History of present illness: 65-year-old white male with pertinent history of prostate cancer diagnosed a couple of years ago, status post radical prostatectomy with increased PSA several months later and then 36 cycles of radiation therapy followed by hormonal injections x2. Since that time he has been in remission with negative PSA testing. 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 3 days ago was at a sale in [facility] and had the urge to void, was only able to produce a couple of drops of blood. Came back to home that night and again was unable to void except for blood. Came to the emergency department where catheter was placed with good return of bloody urine and he was discharged home but that night had increasing pain and distention of his bladder with inability to void with the catheter. Did have leakage of urine around the catheter. Came back to the emergency department where catheter was replaced, clot was in the catheter and he was sent back home when this happened again. Return to the ER this morning. Significant pain and discomfort. Because of the repetitive nature of this occlusion and his need for ongoing bladder irrigation and failed home catheter trial he is admitted to hospital for continuous bladder irrigation, antibiotic coverage given his instrumentation of his bladder and urology consultation. [facility] History Medical History: Reports:: Atrial Fibrillation, Cancer, Coronary Artery Disease (Stent placement several months ago, has had a cough from medications ), Hyperlipidemia, Hypertension Denies:: Diabetes Mellitus Type 1, Diabetes Mellitus Type 2 *Have you ever received a pneumonia vaccine?: No *Have you received a flu vaccine this season?: Yes Other Surgeries: Yes: No Previous Surgery, Cardiac Catheterization, Coronary Stent - *Social History Smoking Status: Current some day smoker Tobacco Type: cigars # Packs/Day (cigarettes): 0 Alcohol Intake: never Substance Use Type: denies use *Occupational Status:: employed Household Members: spouse *Travel in the last 8 weeks: None Family Hx:: Coronary Artery Disease Review of Systems - Review of Systems Review of systems:: pertinent systems reviewed and negative unless documented below - Constitutional Denies anorexia, Denies body ache(s), Denies fever(s), Denies night sweats - Eyes Denies change in vision - ENT Denies abnormal hearing - *Cardiovascular Denies chest pain, Denies excessive sweating, Denies generalized swelling - *Respiratory Denies change in phlegm color, Denies shortness of breath with activity - *Gastrointestinal Denies abdominal pain, Denies change in stools, Denies coffee ground vomit - *Musculoskeletal Reports muscle weakness, Denies abnormal walking, Denies joint swelling - Integumentary/Breasts Denies acne, Denies hair loss - *Neurologic Denies abnormal walking - Psychiatric Denies abnormal sleep pattern Meds Home Medications Medication Instructions Recorded Confirmed Type Aspirin [Low Dose Aspirin EC] 81 mg PO DAILY 02/20/20 02/20/20 History Ciprofloxacin HCl [Ciprofloxacin 500 mg PO BID 02/20/20 02/20/20 History 500mg Tab] Clopidogrel Bisulfate [Plavix] 75 mg PO DAILY 02/20/20 02/20/20 History Fish Oil/Dha/Epa [Fish Oil 1,200 1 each PO DAILY 02/20/20 02/20/20 History mg Fish Oil] Losartan Potassium [Cozaar 25mg 25 mg PO DAILY 02/20/20 02/20/20 History Tablets] Pantoprazole Sodium 40 mg PO DAILY 02/20/20 02/20/20 History Rosuvastatin Calcium 20 mg PO DAILY 02/20/20 02/20/20 History carvediloL [Carvedilol 12.5mg Tab] 12.5 mg PO BID 02/20/20 02/20/20 History Allergies Allergy/AdvReac Type Severity Reaction Status Date / Time No Known Allergies Allergy Verified 02/20/20 10:46 Exam Vital signs and Labs for Last 24 Hour
[2020-02-20 20:00] VITALS: BP 133/64; PULSE 78; TEMP 37.8; O2SAT 91
--- NOTE | 2020-02-20 20:00 | PC.NURSE ---
Upon received bedside report pt states his catheter has became dislodged from genitals. This RN reinserted a new 22 F 3 lumen FC at this time. Inflated balloon with 30 cc of NS. Pt tolerated insertion well. C/o left lower back pain. States Tylenol does not adequately relieve pain. Rating pain 8/10 on pain scale. Ariel BROOKE, awaiting call back.
[2020-02-21] VITALS (20 sets, daily range): BP systolic 112–145; BP diastolic 50–82; PULSE 52–75; RESP 12–18; TEMP 36.4–37.2; O2SAT 90–97; BMI 37.8
--- NOTE | 2020-02-21 05:58 | PC.NURSE ---
Pt is alert and oriented x4. Pt rested well with eyes closed this shift. No acute changes noted from previous shift. Pt c/o pain at beginning of shift. Administered Percocet 1 tab x1 per MAR. Pt noted resting with eyes closed upon reassessment with no further complaints. Tolerated RA well with no c/o SOA. Remains NPO since 0000 for consult this am. Tolerated CBI well with no further c/o cath. Adequate output noted with clear bright yellow urine, small blood clots noted as well. No abd distention noted upon palpation. Ambulates well with standby assist. VSS. Remains safe. Call light within reach. Will continue to monitor.
--- NOTE | 2020-02-21 08:14 | HMH.ACPN2 ---
Internal Medicine - PN: Subj *Date: 02/21/20 *Time: 08:14 Interval history: Patient had some pain overnight. Feels better after some Percocet. No complaints. Exam Vital signs and Labs for Last 24 Hours: Temp Pulse Resp BP Pulse Ox 98.3 F 60 18 116/59 L 93 L 02/21/20 03:50 02/21/20 03:50 02/21/20 03:50 02/21/20 03:50 02/21/20 03:50 Laboratory Results - last 24 hr 02/20/20 11:05: Sodium 140, Potassium 4.4, Chloride 110 H, Carbon Dioxide 26, Anion Gap 8.4, BUN 26 H, Creatinine 0.90, Estimated Creat Clear 130, Estimated GFR 85, Est GFR ( Amer) 102 D, Glucose 141 H D, Calcium 8.7 02/20/20 11:05: WBC 3.9 L D, RBC 4.51 L, Hgb 14.1 D, Hct 41.9 L, MCV 92.9, MCH 31.3 H, MCHC 33.7, RDW 14.2, Plt Count 212, MPV 7.7, Neut % (Auto) 53.5, Lymph % (Auto) 34.0, [place] % (Auto) 7.1, Eos % (Auto) 4.6, Baso % (Auto) 0.7, Neut # (Auto) 2.1, Lymph # (Auto) 1.3, [place] # (Auto) 0.3, Eos # (Auto) 0.2, Baso # (Auto) 0.0 02/20/20 11:05: SARS-CoV-2 IgG Ab (Rapid) Negative, SARS-CoV-2 IgM Ab (Rapid) Negative I & O for Last 24 hours: Intake & Output 02/18/20 02/19/20 02/20/20 02/21/20 11:59 11:59 11:59 11:59 Intake Total 500 / 500 Output Total 125 / 125 Balance 375 / 375 Weight 275 lb 279 lb 4 oz - Constitutional no acute distress - *Routine HEENT Exam Head: Present: normocephalic Eye: Present: EOMI, PERRL ENT: Present: mucous membranes moist - *Routine Neck Exam Present: supple. Absent: lymphadenopathy - *Routine Respiratory Exam Present: CTA bilaterally - *Routine Cardiovascular Exam Present: RRR - *Routine Abdominal Exam Present: soft, normoactive bowel sounds. Absent: tenderness - *Routine Exam Comments: Olsen catheter in place, bladder irrigation ongoing. Fluid in bag is clear - *Routine Extremities Exam Absent: cyanosis, clubbing, edema - *Routine Skin Exam Present: warm. Absent: rash - *Routine Neurological Exam Present: alert, oriented X3 Assessment and Plan (1) Acute urinary retention Status: Acute Category: Medical Code(s): R33.8 - Other retention of urine (2) Cystitis Status: Acute Category: Medical Code(s): N30.90 - Cystitis, unspecified without hematuria (3) Gross hematuria Status: Acute Category: Medical Code(s): R31.0 - Gross hematuria - Assessment and plan all Dx Assessment and Plan for all problems:: Doing well. Pain under control, urology consultation today.
--- NOTE | 2020-02-21 11:17 | HMH.CONS ---
*Admission Date: 02/20/20 *Reason for consult:: Gross hematuria/clot retention *History of present illness: Patient is a 65-year-old white male with history of prostate cancer status post robotic prostate[place] [address] Hammond. He had a PSA recurrence in the was treated with external beam radiation and short course of hormonal therapy for which he is not on any longer. He reports his PSAs have been near 0. He started having some dysuria on Friday associated with only a small amount of gross hematuria. He presented to the emergency room here at [facility] where a Olsen catheter was placed with large amount of bloody urine. He was discharged home with his Olsen but it obstructed later in the day and he returned. He had a Olsen replaced and then reportedly it came out with the balloon inflated at some point. He represented last evening and was admitted and placed on continuous bladder irrigation. and report that that had at least one episode where it was not draining well overnight. The urine in the Olsen bag this morning is clear. His CT scan was reviewed and there does appear to be some heterogeneous debris in the bladder consistent with blood clot. Kidney function, white count are normal. Urinalysis shows positive nitrites and he may have had a UTI that precipitated the gross hematuria associated with the fact that he was recently placed on Plavix and aspirin due to a heart stent last month. [facility] History Medical History: Reports:: Atrial Fibrillation, Cancer, Coronary Artery Disease (Stent placement several months ago, has had a cough from medications ), Hyperlipidemia, Hypertension Denies:: Diabetes Mellitus Type 1, Diabetes Mellitus Type 2 *Have you ever received a pneumonia vaccine?: Yes *Have you received a flu vaccine this season?: Yes Other Surgeries: Yes: No Previous Surgery, Cardiac Catheterization, Coronary Stent - *Social History Last grade of school completed: High school graduate Smoking Status: Current some day smoker Tobacco Type: cigars # Packs/Day (cigarettes): 0 Alcohol Intake: never Substance Use Type: denies use *Occupational Status:: employed Housing: house Household Members: spouse *Travel in the last 8 weeks: None Family Hx:: Coronary Artery Disease, Heart Attack, Hypertension Review of Systems - Review of Systems Review of systems:: pertinent systems reviewed and negative unless documented below - *Neurologic Denies abnormal walking, Denies abnormal hearing Meds Home Medications Medication Instructions Recorded Confirmed Type Aspirin [Low Dose Aspirin EC] 81 mg PO DAILY 02/20/20 02/20/20 History Ciprofloxacin HCl [Ciprofloxacin 500 mg PO BID 02/20/20 02/20/20 History 500mg Tab] Clopidogrel Bisulfate [Plavix] 75 mg PO DAILY 02/20/20 02/20/20 History Fish Oil/Dha/Epa [Fish Oil 1,200 1 each PO DAILY 02/20/20 02/20/20 History mg Fish Oil] Losartan Potassium [Cozaar 25mg 25 mg PO DAILY 02/20/20 02/20/20 History Tablets] Pantoprazole Sodium 40 mg PO DAILY 02/20/20 02/20/20 History Rosuvastatin Calcium 20 mg PO DAILY 02/20/20 02/20/20 History carvediloL [Carvedilol 12.5mg Tab] 12.5 mg PO BID 02/20/20 02/20/20 History Allergies Allergy/AdvReac Type Severity Reaction Status Date / Time No Known Allergies Allergy Verified 02/20/20 10:46 Exam Vital signs and Labs for Last 24 Hours: Temp Pulse Resp BP Pulse Ox 98.2 F 56 L 17 142/82 H 94 L 02/21/20 08:00 02/21/20 08:00 02/21/20 08:00 02/21/20 08:00 02/21/20 08:00 Laboratory Results - last 24 hr 02/20/20 11:05: Sodium 140, Potassium 4.4, Chloride 110 H, Carbon Dioxide 26, Anion Gap 8.4, BUN 26 H, Creatinine 0.90, Estimated Creat Clear 130, Estimated GFR 85, Est GFR ( Amer) 102 D, Glucose 141 H D, Calcium 8.7 02/20/20 11:05: WBC 3.9 L D, RBC 4.51 L, Hgb 14.1 D, Hct 41.9 L, MCV 92.9, MCH 31.3 H, MCHC 33.7, RDW 14.2, Plt Count 212, MPV 7.7, Neut % (Auto) 53.5, Lymph % (Auto) 34.0, [place] % (Auto
--- NOTE | 2020-02-21 12:36 | HMH.ANESCL ---
[facility] Anesthesia Checklist - Structural Data Admitted From: Inpatient Planned Operative Procedure/s: cysto Consent for Planned Operative Procedure(s) Verified: Yes - Airway Assessment C-Spine Mobility Assessed: Yes TMJ Mobility Assessed: Yes Dentition: Good Dentition - Neurological Assessment Level of Consciousness: Awake, Alert, Appropriate - Anesthesia Plan Anesthesia Risk discussed: Yes Anesthesia Plan: Patient unable to respond/answer ASA Class: III Anesthesia Type: General [facility] History I have reviewed the patient's past medical history: Yes Medical History: Reports:: Atrial Fibrillation, Cancer, Coronary Artery Disease (Stent placement several months ago, has had a cough from medications ), Hyperlipidemia, Hypertension Denies:: Diabetes Mellitus Type 1, Diabetes Mellitus Type 2 *Have you ever received a pneumonia vaccine?: Yes *Have you received a flu vaccine this season?: Yes Anesthesia experience/problems:: none Other Surgeries: Yes: No Previous Surgery, Cardiac Catheterization, Coronary Stent - *Social History Last grade of school completed: High school graduate Smoking Status: Current some day smoker Tobacco Type: cigars # Packs/Day (cigarettes): 0 Alcohol Intake: never Substance Use Type: denies use *Occupational Status:: employed Housing: house Household Members: spouse *Travel in the last 8 weeks: None Family Hx:: Coronary Artery Disease, Heart Attack, Hypertension
--- NOTE | 2020-02-21 12:36 | HMH.ANESI ---
[facility] Anesthesia Record Part I Intake, IV Amount: 1,200 Estimated blood loss (mL): 0 Urine output (mL): 0 Blood Pressure: 141/77 SaO2: 93 Pulse Rate: 58 Respiratory Rate: 12 Temperature: 97.5 F Patient is:: Awake, Stable Stable to PACU at:: 12:30
--- NOTE | 2020-02-21 12:51 | HMH.OPNOTE ---
Date of procedure: 02/21/20 Pre-op Diagnosis:: Clot retention Post-op Diagnosis:: Clot retention/bladder irritation Procedure performed:: Cystoscopy with clot evacuation/fulguration of bladder irritation Surgeon:: Joaquim Campos MD [employer] SUPERVISOR:: Eitan Thomas Anesthesia: GETA Estimated blood loss (mL): 0 Clinical Note:: Patient is 65-year-old white male with recent gross hematuria and clot retention. He was admitted to the hospital yesterday with ongoing issues with his Olsen catheter and presents for urologic management. Operative findings:: Small amount of the organized clot in the bladder and evidence of some erythematous areas in the posterior bladder. Operative note:: Patient taken to the operating room after informed consent was obtained. Is placed on the operating table in the supine position and general anesthesia administered. He was on preoperative IV Levaquin no additional antibiotics were given. Sequential compression devices were placed. Patient placed into the dorsal lithotomy position and prepped and draped in the standard surgical fashion. Olsen catheter was removed prior to prepping and draping. The 25 [place] cystoscope sheath passed into the urethral meatus and passed into the bladder without difficulty. The bladder was examined in a systematic fashion. There was some organized clot in the bladder and this was irrigated free without difficulty. Looking back in the bladder there was some erythematous spots in the posterior bladder and a Bugbee electrode was used to fulgurate these areas. The bladder neck was also fulgurated. The bladder showed no evidence of bladder tumors, stones, diverticula or trabeculation. The ureteral orifices in their normal anatomic position with clear efflux of urine. Scope then removed and a 20 [place] three-way catheter passed into the bladder and 20 cc placed into the balloon. Three-way irrigation was reinstituted and the urine was clear. The Olsen catheter was irrigated and it irrigated well with the bulb syringe. Patient tolerated procedure well discharged to the recovery in stable condition. Condition: stable Disposition: PACU Specimens:: Bladder clot Complications:: None
--- NOTE | 2020-02-21 16:37 | PC.NURSE ---
Pt has been pleasant and cooperative this shift. A&O X4. No complaints of pain. Pt is post-operative cystoscopy. CBI. Urine is clear and yellow. F/C and tubing is patent and free from kinks. Lungs CTA. No edema noted. O2 sats. are > 90% on room air. Skin is C/D/I. Appetite is excellent and pt eats the majority of all meals. Pt ambulates independently in the room and only requires assistance with the IV pole. 20 G peripheral IV in the RT AC was DC'd this shift due to dislodgment. A new 20 G peripheral IV was inserted in the LT hand and is patent/infusing NS @ 75 ML/HR. VSS. Call light within reach. Will continue to monitor.
[2020-02-22] VITALS: BP 124/64; PULSE 64; RESP 18; TEMP 36.9; O2SAT 96
--- NOTE | 2020-02-22 00:50 | HMH.DCSUM ---
General - General Admission date:: 02/20/20 Discharge date: 02/22/20 HPI HPI: 65-year-old white male with pertinent history of prostate cancer diagnosed a couple of years ago, status post radical prostatectomy with increased PSA several months later and then 36 cycles of radiation therapy followed by hormonal injections x2. Since that time he has been in remission with negative PSA testing. 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 3 days ago was at a sale in [facility] and had the urge to void, was only able to produce a couple of drops of blood. Came back to home that night and again was unable to void except for blood. Came to the emergency department where catheter was placed with good return of bloody urine and he was discharged home but that night had increasing pain and distention of his bladder with inability to void with the catheter. Did have leakage of urine around the catheter. Came back to the emergency department where catheter was replaced, clot was in the catheter and he was sent back home when this happened again. Return to the ER this morning. Significant pain and discomfort. Because of the repetitive nature of this occlusion and his need for ongoing bladder irrigation and failed home catheter trial he is admitted to hospital for continuous bladder irrigation, antibiotic coverage given his instrumentation of his bladder and urology consultation. Hospital Course Hospital Course: Admitted for hematuria. Urology consulted. Imaging with clot seen. taken to OR for cystoscopy. Findings as follows: There was some organized clot in the bladder and this was irrigated free without difficulty. Looking back in the bladder there was some erythematous spots in the posterior bladder and a Bugbee electrode was used to fulgurate these areas. The bladder neck was also fulgurated. The bladder showed no evidence of bladder tumors, stones, diverticula or trabeculation. The ureteral orifices in their normal anatomic position with clear efflux of urine. Scope then removed and a 20 Polish three-way catheter passed into the bladder and 20 cc placed into the balloon. Three-way irrigation was reinstituted and the urine was clear. The Olsen catheter was irrigated and it irrigated well with the bulb syringe. Patient tolerated procedure well discharged to the recovery in stable condition. Patient remained medically stable. Repeat labs the following morning showed stable hemoglobin. With no further bleeding, may continue Plavix at this time. Will treat with Levaquin for empiric course for UTI. If develops further bleeding, will hold Plavix for a few days as it has been more than 3 months since his stent placement/Cath. Medically stable for discharge home. Follow-up in the coming days with primary care and urology Of note, patient had 300 cc of bladder irrigation fluid instilled prior to removal of catheter. Patient was able to void independently after removal. No clots or hematuria noted with independent voiding. Discharged home with no catheter. Denied chest pain, shortness of breath, fever, chills, nausea or vomiting. Objective Vital signs: Temp Pulse Resp BP Pulse Ox 99 F 72 16 113/50 L 94 L 02/21/20 19:50 02/21/20 19:50 02/21/20 19:50 02/21/20 19:50 02/21/20 19:50 Narrative: - Constitutional no acute distress - *Routine HEENT Exam Head: Present: normocephalic Eye: Present: EOMI, PERRL ENT: Present: mucous membranes moist - *Routine Neck Exam Present: supple. Absent: lymphadenopathy - *Routine Respiratory Exam Present: CTA bilaterally - *Routine Cardiovascular Exam Present: RRR - *Routine Abdominal Exam Present: soft, normoactive bowel sounds. Absent: tenderness - *Routine Exam Comments: Olsen catheter in place, bladder irrigation ongoing. Fluid in bag is clear yellow
[2020-02-22 03:54] VITALS: BP 131/61; PULSE 63; RESP 18; TEMP 36.7; O2SAT 98
--- NOTE | 2020-02-22 04:19 | PC.NURSE ---
patient has been resting on and off throughout shift, incontinent of urine. oriented x4. patient yelling out after repositioning, treated with prn medications. continued yelling out for approximately 15-20 min. attempted to reposition several times unsuccessfully. patient finally fell back to sleep. breath sounds clear throughout on r/a, pulses palpable +2 and regular, bowel sounds active. at bedside, unable to console patient as well.
[2020-02-22 05:00] VITALS: BMI 38.3
--- NOTE | 2020-02-22 07:12 | PC.NURSE ---
patient rested throughout night cbi running clear yellow urine. no clots noted. minimal fluids to keep urine clear. denies pain.
[2020-02-22 07:22] LABS: Basophils % 0.1 % (0.1-2.0); Eosinophils % 0.4 % (0.1-12.0); Hematocrit 38.9 % (42.0-52.0); Hemoglobin 12.5 g/dL (14.1-18.0); Lymphocytes # 0.6 K/mm3 (0.7-4.5); Mean Corpuscular HGB Conc 32.1 g/dL (31.8-35.4); Mean Corpuscular Volume 96.5 fl (80-94); Mean Platelet Volume 7.5 fl (7.4-10.4); Monocytes # 0.4 K/mm3 (0.1-1.0); Neutrophils # 6.9 K/mm3 (1.8-7.8); Neutrophils % 86.5 % (37.0-80.0); Platelet Count 156 K/mm3 (142-424); Red Blood Count 4.03 M/mm3 (4.60-6.20); Red Cell Distribution Width 13.7 % (11.5-17.5)
[2020-02-22 07:23] LABS: MANUAL DIFFERENTIAL MANUAL DIFFERENTIAL (MANUAL DIFF)
[2020-02-22 07:32] LABS: Chloride 110 mmol/L (98-107); Sodium 138 mmol/L (136-145)
[2020-02-22 07:33] LABS: Potassium 4.1 mmoL/L (3.5-5.1)
[2020-02-22 07:36] LABS: Anion Gap 10.1 mEq/L (5-15); Blood Urea Nitrogen 18 mg/dl (9-20); Calcium 8.7 mg/dl (8.4-10.2); Carbon Dioxide 22 mmol/L (22.0-30.0); Creatinine Clearance Estimated 134 mL/min (50-200); Estimated Glomerular Filt Rate 97 ml/min (>60); GFR (African American) 117 ML/MIN (>60); Glucose 158 mg/dl (74-100)
--- NOTE | 2020-02-22 07:39 | P.PN_ITS ---
[facility] Anesthesia Record Part II Discharge Time: 13:00 Destination: floor PACU nurse assessment reviewed?: Yes Patient Condition:: Good Anesthesia Complications:: None Swallowing reflex intact?: Yes Cyanosis?: No Blood Pressure: 137/70 Pulse Rate: 58 Temperature: 98.2 F Mental Status: Alert & Oriented Pain level:: 0 Nausea and/or vomitting:: None Intake, IV Amount: 1,500
[2020-02-22 07:40] VITALS: BP 137/70; PULSE 58; TEMP 36.8
[2020-02-22 08:00] VITALS: BP 140/71; PULSE 60; RESP 16; TEMP 36.6; O2SAT 96
[2020-02-22 09:56] LABS: Lymphocytes % 8 % (10-50); Monocytes % 5 % (2-9); Neutrophils % 87 % (42-76); Platelet Estimate Normal; RBC Morphology Normal; Total Cells Counted 100
--- NOTE | 2020-02-22 10:55 | P.PN_ITS ---
Internal Medicine - PN: Subj *Date: 02/22/20 *Time: 10:55 Interval history: Patient reports no problems overnight. His urine is clear and the CBI has been turned off. Exam Vital signs and Labs for Last 24 Hours: Temp Pulse Resp BP Pulse Ox 97.9 F 60 16 140/71 96 02/22/20 08:00 02/22/20 08:00 02/22/20 08:00 02/22/20 08:00 02/22/20 08:00 Laboratory Results - last 24 hr 02/22/20 06:55: WBC 8.0 D, RBC 4.03 L, Hgb 12.5 L, Hct 38.9 L, MCV 96.5 H, MCH 31.0, MCHC 32.1, RDW 13.7, Plt Count 156 D, MPV 7.5, Neut % (Auto) 86.5 H, Lymph % (Auto) 8.0 L, [place] % (Auto) 5.0, Eos % (Auto) 0.4, Baso % (Auto) 0.1, Neut # (Auto) 6.9, Lymph # (Auto) 0.6 L, [place] # (Auto) 0.4, Eos # (Auto) 0.0, Baso # (Auto) 0.0, Total Counted 100, Neutrophils % (Manual) 87 H, Lymphocytes % (Manual) 8 L, Monocytes % (Manual) 5, Platelet Estimate Normal, RBC Morphology Normal 02/22/20 06:55: Sodium 138, Potassium 4.1, Chloride 110 H, Carbon Dioxide 22, Anion Gap 10.1, BUN 18 D, Creatinine 0.80, Estimated Creat Clear 134, Estimated GFR 97, Est GFR ( Amer) 117, Glucose 158 H, Calcium 8.7 I & O for Last 24 hours: Intake & Output 02/19/20 02/20/20 02/21/20 02/22/20 23:59 23:59 23:59 23:59 Intake Total 2273 / 2273 2860 / 2860 Output Total 825 / 825 3000 / 3000 Balance 1448 / 1448 -140 / -140 Weight 126.325 kg 126.666 kg 128.367 kg Narrative: Well-nourished white male in no apparent distress Pupils equal round reactive to light Head is normocephalic Neck is symmetric Abdomen normal to visual inspection Alert and oriented x3 - *Routine HEENT Exam Head: Present: normocephalic Eye: Present: EOMI, PERRL ENT: Present: mucous membranes moist - *Routine Neck Exam Present: supple. Absent: lymphadenopathy - *Routine Respiratory Exam Present: CTA bilaterally - *Routine Cardiovascular Exam Present: RRR, other - *Routine Abdominal Exam Present: soft, normoactive bowel sounds. Absent: tenderness - *Routine Neurological Exam Present: alert, oriented X3 Assessment and Plan (1) Acute urinary retention Status: Resolved Category: Medical Code(s): R33.8 - Other retention of urine 65-year-old white male with history of prostate cancer status post robotic prostatectomy in 2011. He had some recent gross hematuria and apparent clot retention. He underwent cystoscopy with clot evacuation yesterday and his Olsen catheter is been in rounding well and urine has been clear overnight. We will prime and pull his Olsen catheter today and he is to return to see Dr. Hammond next week for his annual visit. (2) Cystitis Status: Acute Category: Medical Code(s): N30.90 - Cystitis, unspecified without hematuria (3) Gross hematuria Status: Resolved Category: Medical Code(s): R31.0 - Gross hematuria
--- NOTE | 2020-02-22 20:23 | PC.NURSE ---
ORDERS RECEIVED FROM DR. CANELA TO INSTILL 100-400ML NS INTO BLADDER THRU EASTMAN. CLAMP EASTMAN, WHEN PATIENT BEGINS FEELING PRESSURE, STOP FLUID AND REMOVE EASTMAN. PATIENT WAS ABLE TO TOLERATED 300ML. EASTMAN REMOVED, PATIENT TOLERATED WELL. PATIENT IMMEDIATELY URINATED 125ML. PATIENT AMBULATED IN ROOM AND URINATED 325ML. URINE WAS PALE YELLOW, NO BLOOD NOTED, NO ODOR NOTED. NO OTHER CONCERNS AT THIS TIME.
== END 2020-02-22 12:27 | disposition home or self-care (01) ==
LOC: ER 13:40 → 2ND 13:53
PROVIDERS: Internal Medicine Adolescent Medicine; Urology; Admitting Provider Internal Medicine Adolescent Medicine; Emergency Provider Emergency Medicine; PCP Internal Medicine Adolescent Medicine; Visit Provider Internal Medicine Adolescent Medicine
PROC: 0TJB8ZZ Inspection of Bladder, Via Natural or Artificial Opening Endoscopic (ICD-10-PCS; CPT 52000; principal; 2020-02-21 11:30)
DX: N30.91 Cystitis, unspecified with hematuria (principal); R31.0 Gross hematuria; R33.8 Other retention of urine; I10 Essential (primary) hypertension; I25.10 Atherosclerotic heart disease of native coronary artery without angina pectoris; I48.91 Unspecified atrial fibrillation; E78.5 Hyperlipidemia, unspecified; Z95.5 Presence of coronary angioplasty implant and graft; Z79.82 Long term (current) use of aspirin; Z79.02 Long term (current) use of antithrombotics/antiplatelets; Z72.0 Tobacco use
CPT/HCPCS: 52001; 80048; 85007; 85025; 86328; 87086; 99283; G0378; J1956; J2405

== ENCOUNTER 2020-04-13 22:42 | Emergency (ER) | payer BC, SELFPAY ==
[2020-04-13 22:43] VITALS: BP 184/98; PULSE 75; RESP 16; TEMP 36.8; O2SAT 96; BMI 37.3
--- NOTE | 2020-04-13 22:46 | HMH.EDGENADL ---
ED Disposition Clinical Impression: Acute retention of urine Disposition: Home, Self-Care Condition on Discharge: Good Instructions: How to Care for Your Baker Catheter -- Male Additional Instructions: Monitor Baker to ensure continuous drainage. Please call urology first thing the morning for further treatment/management. If catheter becomes clogged, any suprapubic pain/abdominal pain, nausea/vomiting, generalized malaise, or other new concerning symptoms please immediately return back to our emergency department. Referrals: Edward Cali MD [Primary Care Provider] - Joaquim Campos MD [Staff Physician] - 3 days (Urinary retention with hematuria. Baker placed and discharged with baker in place/leg bag.) - Critical Care Critical Care Time: No Attestation: On , the high probability of a clinically significant, sudden or life threatening deterioration of the following system(s) required my full and direct attention, intervention and personal management. The time I documented below is in addition to time spent performing reported procedures but includes the following listed in this critical care notation. Medical Decision Making - Medical Records Medical records reviewed: Yes: I reviewed the patient's medical records. - William Inquiry Pt receiving controlled substance: No Vital Signs: 04/13/20 22:43 Temperature 98.3 F Temperature Source Oral Pulse Rate [Left Radial] 75 Respiratory Rate 16 Blood Pressure [Right Arm] 184/98 H Blood Pressure Mean [Right Arm] 126 Blood Pressure Source [Right Arm] Automatic Cuff Blood Pressure Position [Right Arm] Sitting 02 Sat by Pulse Oximetry 96 Oxygen Delivery Method Room Air - Lab Data Lab Results 04/13/20 23:30: WBC 6.7, RBC 5.02, Hgb 16.4, Hct 46.4, MCV 92.4, MCH 32.6 H, MCHC 35.3, RDW 14.2, Plt Count 247, MPV 7.5, Neut % (Auto) 59.6, Lymph % (Auto) 29.8, [place] % (Auto) 6.0, Eos % (Auto) 4.1, Baso % (Auto) 0.5, Neut # (Auto) 4.0, Lymph # (Auto) 2.0, [place] # (Auto) 0.4, Eos # (Auto) 0.3, Baso # (Auto) 0.0 04/13/20 23:30: Sodium 137, Potassium 3.9, Chloride 104, Carbon Dioxide 23, Anion Gap 13.9, BUN 19, Creatinine 0.90, Estimated Creat Clear 130, Estimated GFR 85, Est GFR ( Amer) 102, Glucose 107 H, Calcium 9.6, Total Bilirubin 0.6, AST 31, ALT 35, Alkaline Phosphatase 82, Total Protein 8.7 H, Albumin 4.9, Globulin 3.8 H, Albumin/Globulin Ratio 1.3 04/14/20 00:15: Urine Color Red, Urine Appearance Turbid, Urine pH 6.0, Ur Specific [place] 1.025, Urine Protein 3+, Urine Glucose (UA) Negative, Urine Ketones Negative, Urine Blood 3+, Urine Nitrate Negative, Urine Bilirubin Negative, Urine Urobilinogen 0.2, Ur Leukocyte Esterase Negative, Urine RBC Tntc, Urine WBC Occasional, Urine Bacteria 1+ Result diagrams: 04/13/20 23:30 04/13/20 23:30 Medical Decision Narrative: Patient presents with hematuria and urinary retention. I did review his chart. He does have a history of prostate cancer status post prostatectomy and radiation. He did have issues in January with hematuria and urinary retention caused by blood clots requiring cystoscopy with irrigation. He has been on antibiotics basically since and just recently finished a course of antibiotics Friday. Shortly after his arrival he was able to void without assistance but did not collect any sample for us. He will try again shortly. Lab work checked and he has a creatinine of 0.9 and hemoglobin of 16 g. Urinalysis was able to be obtained because patient voided with ease again and sample is turbid and red. Patient's gross hematuria is not obviously infected but a urine culture will be obtained. Patient had difficulty voiding after collection of urine sample so Baker catheter placed with drainage of blood-tinged urine. Patient observed for several hours and continues to have drainage of blood-tinged urine. No suprapubic pressure and at this time I do believe the best course of action for this patient has no post void diu
[2020-04-13 23:30] VITALS: BP 181/88; PULSE 76; RESP 17; O2SAT 96
[2020-04-13 23:47] LABS: Chloride 104 mmol/L (98-107); Potassium 3.9 mmoL/L (3.5-5.1); Sodium 137 mmol/L (136-145)
[2020-04-13 23:48] LABS: Basophils % 0.5 % (0.1-2.0); Eosinophils # 0.3 K/mm3 (0.0-0.4); Eosinophils % 4.1 % (0.1-12.0); Hematocrit 46.4 % (42.0-52.0); Hemoglobin 16.4 g/dL (14.1-18.0); Lymphocytes % 29.8 % (10-50); Mean Corpuscular HGB Conc 35.3 g/dL (31.8-35.4); Mean Corpuscular Hemoglobin 32.6 pg (27.0-31.2); Mean Corpuscular Volume 92.4 fl (80-94); Mean Platelet Volume 7.5 fl (7.4-10.4); Monocytes # 0.4 K/mm3 (0.1-1.0); Neutrophils % 59.6 % (37.0-80.0); Platelet Count 247 K/mm3 (142-424); Red Blood Count 5.02 M/mm3 (4.60-6.20); Red Cell Distribution Width 14.2 % (11.5-17.5); White Blood Count 6.7 K/mm3 (4.8-10.8)
[2020-04-13 23:50] LABS: Alanine Aminotransferase 35 U/L (12-78); Albumin Level 4.9 g/dl (3.5-5.0); Albumin/Globulin Ratio 1.3 (1.1-1.8); Alkaline Phosphatase 82 U/L (38-126); Anion Gap 13.9 mEq/L (5-15); Aspartate Amino Transferase 31 U/L (17-59); Bilirubin,Total 0.6 mg/dl (0.2-1.3); Blood Urea Nitrogen 19 mg/dl (9-20); Carbon Dioxide 23 mmol/L (22.0-30.0); Creatinine Clearance Estimated 130 mL/min (50-200); Estimated Glomerular Filt Rate 85 ml/min (>60); GFR (African American) 102 ML/MIN (>60); Globulin 3.8 g/dL (1.3-3.2); Total Protein,Serum 8.7 g/dl (6.3-8.2)
[2020-04-13 23:51] LABS: Calcium 9.6 mg/dl (8.4-10.2); Glucose 107 mg/dl (74-100)
[2020-04-14] VITALS: BP 178/84; PULSE 78; RESP 17; O2SAT 98
[2020-04-14 00:19] LABS: Microscopic, Urine URINE MICROSCOPIC (MICROSCOPIC)
[2020-04-14 00:30] VITALS: BP 171/84; PULSE 74; RESP 15; O2SAT 99
[2020-04-14 00:33] LABS: Appearance,Urine Turbid (Clear); Bilirubin,Urine Negative (Negative); Blood, Urine 3+ (Negative); Color,Urine Red (Yellow); Glucose,Urine (UA) Negative (Negative); Ketones,Urine Negative (Negative); Leukocyte Esterase,Urine Negative (Negative); Nitrate,Urine Negative (Negative); Protein,Urine 3+ (Negative); Specific Gravity, Urine 1.025 (1.005-1.030); Urobilinogen,Urine 0.2 EU/dl (0.2)
[2020-04-14 00:34] LABS: Bacteria,Urine 1+ /lpf; RBC,Urine TNTC #/hpf (0-3); WBC,Urine Occasional #/hpf (0-3)
[2020-04-14 01:00] VITALS: BP 175/89; PULSE 74; RESP 18; O2SAT 96
[2020-04-14 01:30] VITALS: BP 170/82; PULSE 71; RESP 15; O2SAT 96
--- NOTE | 2020-04-14 01:32 | PC.NURSE ---
600ml's of bright red, clear urine emptied from leg bag. UA sent to lab for cath specimen. Pt tolerated well and verbalizes relief.
[2020-04-14 01:35] VITALS: BP 174/85; PULSE 73; RESP 16; TEMP 36.6; O2SAT 98
== END 2020-04-14 01:39 | disposition home or self-care (01) ==
PROVIDERS: Emergency Provider Emergency Medicine; PCP Internal Medicine Adolescent Medicine
DX: R33.8 Other retention of urine (principal); R31.9 Hematuria, unspecified; I10 Essential (primary) hypertension; E78.5 Hyperlipidemia, unspecified; I48.91 Unspecified atrial fibrillation; F17.210 Nicotine dependence, cigarettes, uncomplicated; Z85.46 Personal history of malignant neoplasm of prostate; Z79.899 Other long term (current) drug therapy
CPT/HCPCS: 80053; 81001; 85025; 87086; 99283

== ENCOUNTER 2020-05-12 16:31 | Emergency (ER) | payer BC, SELFPAY ==
[2020-05-12 16:33] VITALS: BP 164/87; PULSE 61; RESP 20; TEMP 36.7; O2SAT 96; BMI 38.0
--- NOTE | 2020-05-12 16:42 | HMH.EDGENADL ---
ED Disposition Clinical Impression: Ribs, multiple fractures Qualifiers: Encounter type: initial encounter Fracture type: closed Laterality: left Qualified Code(s): S22.42XA - Multiple fractures of ribs, left side, initial encounter for closed fracture Disposition: Home, Self-Care Condition on Discharge: Fair Instructions: DI for Rib Fracture Additional Instructions: Percocet for pain. Additional instructions for RIB INJURIES: See your physician as soon as possible for further evaluation. Hold a pillow against your injured ribs to help with pain when coughing or sneezing. Sleep with several pillows to help support you in the most comfortable position. Take deep breaths frequently. Return immediately if shortness of breath, intolerable pain, coughing of blood, abdominal pain or vomiting. Additional instructions for CONTROLLED SUBSTANCES: You have been prescribed a medication that is a controlled substance. Controlled substances include pain medications known as opiates and sedative nerve medications known as benzodiazepines. Tramadol, fioricet, and gabapentin are also controlled substances. Some common opiates include: Codeine (such as Tylenol #3) Hydrocodone (Vicodin, Lortab, Lorcet, [employer]) Oxycodone (Percocet, Percodan, Oxycodone, Oxy IR) Some common benzodiazepines include: Diazepam (Valium) Lorazepam (Ativan) Alprazolam (Xanax) Clonazepam (Klonopin) Oxazepam (Serax) All of these controlled substances are highly addictive and frequently abused. Misuse can and frequently does lead to addiction as well as overdose and . Medication should be stored in a locked cabinet or other secure storage unit. Do not store the medication in a motor vehicle. Short term supplies, 3 days or less, are prescribed because of the highly addictive nature of the medication. Any of the controlled substance medication NOT taken should be disposed of properly and NOT SAVED. The recommended method of disposing of unused medications is: Place the medicines in a sealable plastic bag. If the medicine is a solid, crush it or add water to dissolve it. Add something undesirable (cat litter, coffee grounds, etc.) Dispose of sealed bag in household trash Do not flush or pour unused medicines down a sink or drain. Controlled substances should not be shared, given away or sold. Because of the addictive nature and frequent abuse, these medications are sometimes stolen. These medications should be kept in a safe place where they cannot be stolen. Do not keep them in your car or purse. Lost or stolen prescriptions for controlled substances WILL NOT BE REFILLED in this emergency department, regardless of whether a police report was filed. Prescriptions: Oxycodone HCl/Acetaminophen [Percocet 10-325 mg Tablet] 1 tab PO Q6H PRN #20 tab PRN Reason: Moderate To Severe Pain Transmission Status: Sent to [facility]/pharmacy #[id number] Referrals: Faisal Allred MD [Primary Care Provider] - 3 days - Critical Care Critical Care Time: No Attestation: On 05/12/20, the high probability of a clinically significant, sudden or life threatening deterioration of the following system(s) required my full and direct attention, intervention and personal management. The time I documented below is in addition to time spent performing reported procedures but includes the following listed in this critical care notation. Medical Decision Making - William Inquiry Pt receiving controlled substance: Yes William was queried for this patient: Yes Risks and benefits of using a controlled substance: were discussed with pt by me Vital Signs: 05/12/20 16:33 05/12/20 17:40 Temperature 98.1 F Temperature Source Oral Pulse Rate [Right Radial] 61 66 Respiratory Rate 20 18 Blood Pressure [Right Arm] 164/87 H 146/73 H Blood Pressure Mean [Right Arm] 112 97 Blood Pressure Source [Right Arm] Automatic Cuff Automatic Cuff Blood Pressure Position [Right Arm] Si
--- NOTE | 2020-05-12 16:47 | CT_ITS ---
PROCEDURE: CT ABDOMEN PELVIS W CON CLINICAL INDICATION: trauma Left flank pain following injury COMPARISON: CT CT ABDOMEN PELVIS WO CON from 02/19/2020 TECHNIQUE: IV Contrast: 75ML Isovue 370 Oral Contrast None Axial images obtained with sagittal and coronal reformats. All CT scans at the facility use one or more dose reduction, viz: automated exposure control, ma/kV adjustment per patient size (including targeted exams where dose is matched to indication, i.e. head), or iterative reconstruction technique. FINDINGS: LOWER THORAX: There are nondisplaced fractures of the left 6th through 10th ribs ABDOMEN & PELVIS: The liver, gallbladder, spleen, adrenal glands, and pancreas have an unremarkable appearance. Nonobstructing 3 mm stone is present along the lower pole of the left kidney. There are atherosclerotic changes involving the abdominal aorta. No evidence of appendicitis or diverticulitis. There is a mild amount of retained colonic feces. There is mild thickening of the urinary bladder which may be due to nondistention or cystitis. IMPRESSION: Nondisplaced fractures left 6th through 10th ribs. Nonobstructing left renal stone. Dictated by: West Yao MD 05/12/2020 23:09 West Yao MD in [place] 05/12/2020 23:09
--- NOTE | 2020-05-12 16:50 | PC.NURSE ---
DUNG BROOKE states pt not to wait on CT scans for lab work. notified radiology of CT scan orders
--- NOTE | 2020-05-12 16:58 | CT_ITS ---
PROCEDURE: CT ANGIO CHEST CLINCIAL INDICATION: TRAUMA Blunt trauma with injury and pain, contusion/abrasion or hematoma following injury COMPARISON: No exams were available for comparison TECHNIQUE: IV Contrast: 70ML Isovue 370 Axial images obtained with sagittal and coronal reformats. All CT scans at the facility use one or more dose reduction, viz: automated exposure control, ma/kV adjustment per patient size (including targeted exams where dose is matched to indication, i.e. head), or iterative reconstruction technique. FINDINGS: HEART AND MEDIASTINAL STRUCTURES: No evidence of pulmonary embolus, aortic aneurysm, or aortic dissection.. Coronary artery calcifications are present. There are few mediastinal lymph nodes. LUNGS AND PLEURAL SPACES: There low lung volumes. There is mild prominence of the interstitium peripherally. Atelectatic changes are present in the right middle lobe and lingula.. No evidence of pneumothorax. BONY STRUCTURES: There are nondisplaced fractures of the left 6 through 10th ribs IMPRESSION: Nondisplaced fractures of the left 6th through 10th ribs. Dictated by: West Yao MD 05/12/2020 23:04 West Yao MD in [place] 05/12/2020 23:04
[2020-05-12 17:03] LABS: Basophils % 0.4 % (0.1-2.0); Eosinophils # 0.4 K/mm3 (0.0-0.4); Eosinophils % 8.8 % (0.1-12.0); Hematocrit 41.1 % (42.0-52.0); Hemoglobin 13.6 g/dL (14.1-18.0); Lymphocytes # 1.5 K/mm3 (0.7-4.5); Lymphocytes % 29.5 % (10-50); Mean Corpuscular HGB Conc 33.2 g/dL (31.8-35.4); Mean Corpuscular Hemoglobin 31.3 pg (27.0-31.2); Mean Corpuscular Volume 94.4 fl (80-94); Mean Platelet Volume 7.9 fl (7.4-10.4); Monocytes # 0.3 K/mm3 (0.1-1.0); Monocytes % 6.1 % (1.7-9.3); Neutrophils # 2.8 K/mm3 (1.8-7.8); Neutrophils % 55.2 % (37.0-80.0); Platelet Count 210 K/mm3 (142-424); Red Blood Count 4.35 M/mm3 (4.60-6.20); Red Cell Distribution Width 13.8 % (11.5-17.5)
[2020-05-12 17:09] LABS: Alanine Aminotransferase 25 U/L (12-78); Albumin Level 4.6 g/dl (3.5-5.0); Albumin/Globulin Ratio 1.2 (1.1-1.8); Alkaline Phosphatase 65 U/L (38-126); Anion Gap 10.3 mEq/L (5-15); Aspartate Amino Transferase 31 U/L (17-59); Bilirubin,Total 0.7 mg/dl (0.2-1.3); Blood Urea Nitrogen 23 mg/dl (9-20); Calcium 9.9 mg/dl (8.4-10.2); Carbon Dioxide 26 mmol/L (22.0-30.0); Chloride 107 mmol/L (98-107); Creatinine Clearance Estimated 132 mL/min (50-200); Estimated Glomerular Filt Rate 85 ml/min (>60); GFR (African American) 102 ML/MIN (>60); Globulin 3.7 g/dL (1.3-3.2); Glucose 108 mg/dl (74-100); Potassium 4.3 mmoL/L (3.5-5.1); Sodium 139 mmol/L (136-145); Total Protein,Serum 8.3 g/dl (6.3-8.2)
--- NOTE | 2020-05-12 17:10 | PC.NURSE ---
pt to CT
[2020-05-12 17:40] VITALS: BP 146/73; PULSE 66; RESP 18; O2SAT 93
[2020-05-12 18:29] VITALS: BP 139/89; PULSE 58; RESP 18; O2SAT 95
[2020-05-12 18:51] VITALS: BP 139/87; PULSE 88; RESP 20; TEMP 36.6; O2SAT 94
== END 2020-05-12 18:53 | disposition home or self-care (01) ==
PROVIDERS: Emergency Provider Emergency Medicine; PCP Internal Medicine Adolescent Medicine
DX: S22.42XA Multiple fractures of ribs, left side, initial encounter for closed fracture (principal); W55.22XA Struck by cow, initial encounter; Y92.73 Farm field as the place of occurrence of the external cause; I25.10 Atherosclerotic heart disease of native coronary artery without angina pectoris; I48.91 Unspecified atrial fibrillation; I10 Essential (primary) hypertension; E78.5 Hyperlipidemia, unspecified; Z87.891 Personal history of nicotine dependence; Z79.899 Other long term (current) drug therapy
CPT/HCPCS: 71275; 74177; 80053; 85025; 96374; 99283; J2405; Q9967

== ENCOUNTER → 2020-09-26 15:18 | Outpatient (CLI) | payer BC, MEDICARE, SELFPAY | PROVIDERS: PCP Internal Medicine Adolescent Medicine; Visit Provider Physician Assistant | DX: I25.10 Atherosclerotic heart disease of native coronary artery without angina pectoris (principal); R00.2 Palpitations | CPT/HCPCS: 93270 ==

== ENCOUNTER → 2021-07-31 14:19 | Outpatient (CLI) | payer MEDICARE, SELFPAY ==
[2021-07-31 15:02] LABS: Basophils # 0.1 K/mm3 (0-0.2); Basophils % 1.1 % (0.1-2.0); Eosinophils # 0.2 K/mm3 (0.0-0.4); Eosinophils % 4.9 % (0.1-12.0); Hemoglobin 14.9 g/dL (14.1-18.0); Lymphocytes # 1.8 K/mm3 (0.7-4.5); Lymphocytes % 38.2 % (10-50); Mean Corpuscular HGB Conc 33.9 g/dL (31.8-35.4); Mean Corpuscular Hemoglobin 32.6 pg (27.0-31.2); Mean Corpuscular Volume 96.1 fl (80-94); Monocytes # 0.3 K/mm3 (0.1-1.0); Monocytes % 6.5 % (1.7-9.3); Neutrophils # 2.3 K/mm3 (1.8-7.8); Neutrophils % 49.3 % (37.0-80.0); Platelet Count 237 K/mm3 (142-424); Red Blood Count 4.58 M/mm3 (4.60-6.20); Red Cell Distribution Width 14.2 % (11.5-17.5); White Blood Count 4.6 K/mm3 (4.8-10.8)
[2021-07-31 16:38] LABS: Alanine Aminotransferase 22 U/L (12-78); Albumin Level 4.5 g/dl (3.5-5.0); Alkaline Phosphatase 67 U/L (38-126); Anion Gap 11.8 mEq/L (5-15); Aspartate Amino Transferase 23 U/L (17-59); Bilirubin,Direct 0.2 mg/dl (0.0-0.4); Bilirubin,Indirect 0.3 mg/dL (0.0-0.9); Bilirubin,Total 0.5 mg/dl (0.2-1.3); Bilirubin,Unconjugated 0.4 mg/dL (0.0-1.1); Blood Urea Nitrogen 21 mg/dl (9-20); Calcium 9.5 mg/dl (8.4-10.2); Carbon Dioxide 28 mmol/L (22.0-30.0); Chloride 104 mmol/L (98-107); Chol/HDL Ratio 10.5 (1-3.5); Cholesterol 263 mg/dl (140-200); Estimated Glomerular Filt Rate 97 ml/min (>60); GFR (African American) 117 ML/MIN (>60); Glucose 89 mg/dl (74-100); HDL Cholesterol 25 mg/dl (40-60); Potassium 4.8 mmoL/L (3.5-5.1); Sodium 139 mmol/L (136-145); Total Protein,Serum 7.3 g/dl (6.3-8.2); Triglycerides 309 mg/dl (30-150); VLDL Cholesterol 62 mg/dL (0-40)
[2021-07-31 16:49] LABS: Direct LDL Cholesterol 159.17 mg/dL (100-129)
[2021-07-31 16:56] LABS: Free T4 (Free Thyroxine) 0.83 ng/dl (0.78-2.19)
[2021-07-31 17:10] LABS: Thyroid Stimulating Hormone 2.37 uIU/mL (0.465-4.68)
== END ==
PROVIDERS: Visit Provider Nurse Practitioner
DX: E11.9 Type 2 diabetes mellitus without complications (principal); E78.5 Hyperlipidemia, unspecified; I25.10 Atherosclerotic heart disease of native coronary artery without angina pectoris; R00.1 Bradycardia, unspecified; R00.2 Palpitations; R06.00 Dyspnea, unspecified; I11.9 Hypertensive heart disease without heart failure; I63.9 Cerebral infarction, unspecified
CPT/HCPCS: 36415; 80048; 80061; 80076; 84439; 84443; 85025

== ENCOUNTER 2023-10-14 15:22 | Outpatient (CLI) | payer MEDICARE, SELFPAY | END 2023-10-14 23:59 | disposition home or self-care (01) | LOC: RT 15:24 | PROVIDERS: PCP Internal Medicine Adolescent Medicine; Visit Provider Physician Assistant | DX: I48.0 Paroxysmal atrial fibrillation (principal); R00.2 Palpitations | CPT/HCPCS: 93270 ==